=== PATIENT | female | born 1985 | race African-American/Black ===

== ENCOUNTER 2024-12-06 22:32 | Emergency (ER) | payer OTHER ==
[~2024-12-06] VITALS: Ht 165.1 cm; Wt 75.0 kg
[2024-12-06 22:47] VITALS: BP 123/78; PULSE 88; RESP 18; TEMP 36.7; O2SAT 99
== END 2024-12-07 01:02 | disposition left against medical advice (07) ==
LOC: ER 22:32
DX: Z11.3 Encounter for screening for infections with a predominantly sexual mode of transmission (principal); Z53.21 Procedure and treatment not carried out due to patient leaving prior to being seen by health care provider